=== PATIENT | male | born 1955 | race Caucasian/White ===

== ENCOUNTER 2020-10-02 16:18 | Emergency (ER) | payer MEDICARE, BC ==
[2020-10-02] MEDS ORDERED: Sodium Chloride 0.9% 10 ML Syringe FLUSH PRN (16:27)
--- NOTE | 2020-10-02 16:59 | EDM.PDOC ---
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 PT REPORTS THE INITIAL PAIN WAS VERY INTENSE BUT NOW HE IS FEELING MUCH BETTER. PT REPORTS HE WAS ABLE TO STAND AND AMBULATE AFTER INCIDENT. PT REPORTS PAIN IS LOCATED ON THE RIGHT MID BACK/FLANK AREA AND HURTS MORE WITH SPINAL ROTATION. PT DENIES ANY RADIATION TO ABDOMEN OR LOWER EXTREMITY. PT DENIES ANY DYSURIA OR URINARY FREQUENCY. PT REPORTS HE THINKS HE MAY HAVE COME TO SOON SINCE HE IS FEELING MUCH IMPROVED. Onset: Today Location: Reports: Back Quality: Reports: Ache Severity: Moderate Improves with: Reports: Rest Worsens with: Reports: Movement Associated Symptoms: Reports: No Other Symptoms Right Lower Back Pain Score (Numeric/FACES): 7 - Related Data Allergies Allergy/AdvReac Type Severity Reaction Status Date / Time No Known Drug Allergies Allergy Cannot Verified 10/02/20 16:39 Remember Home Meds: Home Meds Finasteride 5 mg PO BEDTIME 10/02/20 [History] Sildenafil Citrate [Viagra] 50 mg PO ASDIRECTED PRN 10/02/20 [History] Tamsulosin [Flomax] 0.4 mg PO BEDTIME 10/02/20 [History] atorvaSTATin [Lipitor] 10 mg PO DAILY 10/02/20 [History] methocarbamoL [Methocarbamol] 500 mg PO ASDIRECTED PRN 10/02/20 [History] ED ROS GENERAL - Review of Systems Review Of Systems: See Below Constitutional: Reports: No Symptoms HEENT: Reports: No Symptoms Respiratory: Reports: No Symptoms Cardiovascular: Reports: No Symptoms Endocrine: Reports: No Symptoms GI/Abdominal: Reports: No Symptoms : Reports: No Symptoms Musculoskeletal: Reports: Back Pain Skin: Reports: No Symptoms Neurological: Reports: No Symptoms Psychiatric: Reports: No Symptoms Hematologic/Lymphatic: Reports: No Symptoms Immunologic: Reports: No Symptoms ED EXAM,LOWER BACK PAIN/INJURY - Physical Exam Exam: See Below Exam Limited By: No Limitations General Appearance: Alert, WD/WN, No Apparent Distress Head: Atraumatic, Normocephalic Neck: Normal Inspection, Supple, Non-Tender, Full Range of Motion Respiratory/Chest: No Respiratory Distress, Lungs Clear, Normal Breath Sounds, No Accessory Muscle Use, Chest Non-Tender Cardiovascular: Normal Peripheral Pulses, Regular Rate, Rhythm, No Edema, No Gallop, No JVD, No Murmur, No Rub GI/Abdominal: Normal Bowel Sounds, Soft, Non-Tender, No Organomegaly, No Distention, No Abnormal Bruit, No Mass Back Exam: Full Range of Motion, Muscle Spasm, Paraspinal Tenderness Extremities: Normal Inspection, Normal Range of Motion, Non-Tender, No Pedal Edema, Normal Capillary Refill Neurological: Alert, Normal Mood/Affect, Normal Dorsiflexion, CN II-XII Intact, Normal Plantar Flexion, Normal Gait, Normal Reflexes, No Motor/Sensory Deficits, Oriented x 3 Course - Vital Signs Last Recorded V/S: Last Vital Signs Temp 96.8 F L 10/02/20 16:28 Pulse 79 10/02/20 16:28 Resp 20 10/02/20 16:28 BP 152/86 H 10/02/20 16:28 Pulse Ox 99 10/02/20 16:28 - Orders/Labs/Meds Orders: Active Orders 24 hr Category Date Time Status Peripheral IV Care [RC] . DIRECTED Care 10/02/20 16:28 Active Lumbar Spine 2 or 3V [CR] Stat Exams 10/02/20 16:27 Ordered Thoracic Spine 2V [CR] Stat Exams 10/02/20 16:27 Ordered Sodium Chloride 0.9% [Saline Flush] Med 10/02/20 16:27 Active 10 ml FLUSH Q8HR PRN Peripheral IV Insertion Adult [OM.PC] Routine Oth 10/02/20 16:27 Ordered Medication Orders Sodium Chloride (Sodium Chloride 0.9% 10 Ml Syringe) 10 ml FLUSH Q8HR PRN PRN Reason: keep vein open Meds: Medications Generic Name Dose Route Start Last Admin Trade Name Freq PRN Reason Stop Dose Admin Sodium Chloride 10 ml 10/02/20 16:27 Sodium Chloride 0.9% 10 Ml Syringe FLUSH Q8HR PRN keep vein open - Radiology Interpretation Free Text/Narrative:: THORACIC XRAY- NO FRACTURE OR MALALIGNMENT LUMBAR XRAY- NO FRACTURE OR MALALIGNMENT Departure - Departure Time of Disposition: 17:01 Disposition: Home, Self-Care 01 Condition: Good Clinical Impression: Strain of mid-back Qualifiers: Encounter type: initial encounter Qualified Code(s): S29.012A - Strain of muscle and tendon of back wall of thorax, initial encounter - Discharge Information Referrals: Davin Martin, SENIOR GEOLOGIST [Primary Care Provider] - Additional Instructions: 1. DISCHARGE HOME 2. MOTRIN 600MG EVERY 6 HOURS X 5 DAYS 3. CONTINUE HOME MUSCLE RELAXER TWICE X DAY NEEDED FOR DISCOMFORT 4. HEAT TO BACK AND GENTLE STRETCHING 5. RETURN TO ER FOR WORSENING SYMPTOMS 6. FOLLOW UP WITH PCP IF NO IMPROVEMENT IN SYMPTOMS X 1 WEEK Sepsis Event Note (ED) - Evaluation Sepsis Screening Result: No Definite Risk - Focused Exam Vital Signs: Vital Signs Temp Pulse Resp BP Pulse Ox 10/02/20 16:28 96.8 F L 79 20 152/86 H 99 - My Orders Last 24 Hours: My Active Orders 10/02/20 16:27 Lumbar Spine 2 or 3V [CR] Stat Thoracic Spine 2V [CR] Stat Sodium Chloride 0.9% [Saline Flush] 10 ml FLUSH Q8HR PRN Peripheral IV Insertion Adult [OM.PC] Routine 10/02/20 16:28 Peripheral IV Care [RC] . DIRECTED - Assessment/Plan Last 24 Hours: My Active Orders 10/02/20 16:27 Lumbar Spine 2 or 3V [CR] Stat Thoracic Spine 2V [CR] Stat Sodium Chloride 0.9% [Saline Flush] 10 ml FLUSH Q8HR PRN Peripheral IV Insertion Adult [OM.PC] Routine 10/02/20 16:28 Peripheral IV Care [RC] . DIRECTED Assessment:: 1. MID BACK STRAIN Plan: 1. DISCHARGE HOME 2. MOTRIN 600MG EVERY 6 HOURS X 5 DAYS 3. CONTINUE HOME MUSCLE RELAXER TWICE X DAY NEEDED FOR DISCOMFORT 4. HEAT TO BACK AND GENTLE STRETCHING 5. RETURN TO ER FOR WORSENING SYMPTOMS 6. FOLLOW UP WITH PCP IF NO IMPROVEMENT IN SYMPTOMS X 1 WEEK
--- NOTE | 2020-10-02 17:02 | CR ---
[id number] RAD/RAD Thoracic Spine 2V; [id number] RAD/RAD Lumbar Spine 2-3V EXAM: RAD Lumbar Spine 2-3V, RAD Thoracic Spine 2V INDICATION: BACK PAIN. COMPARISON: None. DISCUSSION: Mild convex left curvature centered in the mid lumbar spine and convex right curvature centered in the mid to lower thoracic spine. The vertebral bodies are otherwise normal in height and alignment with no fracture identified. Moderate disc degeneration at L5-S1 with milder changes at the remaining lumbar disc levels and scattered throughout the thoracic spine. A left renal calculus is suggested measuring about 6 mm in diameter. IMPRESSION: 1. Moderate L5-S1 disc degeneration with milder changes scattered throughout the remaining thoracic and lumbar spine. Nigel Coppola MD 10/02/20 [id number] Thank you for allowing us to participate in the care of your patient.
== END 2020-10-02 17:15 | disposition home or self-care (01) ==
LOC: KA.ED 16:18
DX: S29.012A Strain of muscle and tendon of back wall of thorax, initial encounter (principal); Z79.899 Other long term (current) drug therapy; X50.1XXA Overexertion from prolonged static or awkward postures, initial encounter
CPT/HCPCS: 72070; 72100; 99283; 99283-25